=== PATIENT | male | born 1995 | race Caucasian/White ===

== ENCOUNTER → 2016-06-08 | Outpatient (CLI) | payer OTHER ==
--- NOTE | 2016-06-08 18:26 | DIAGNOSTIC IMAGING REPORT ---
MRI THE RIGHT ANKLE NO CONTRAST CLINICAL HISTORY: Right ankle pain. Possible osteochondral lesion involving the talar dome COMPARISON STUDY: No previous studies for comparison. FINDINGS: Imaging was performed in the sagittal, axial, and coronal planes. There are no areas of marrow edema to indicate occult fracture or bone bruise. Specifically, no lesions of the talar dome are visualized. There is lateral soft tissue edema. There is a tear of the anterior talofibular ligament. No tendon tears are visualized. IMPRESSION: 1. Tear of the anterior talofibular ligament 2. No evidence of occult fracture. No evidence of talar dome osteochondritis. 3. Small effusion and lateral soft tissue edema Electronically signed by: Corona Navarrete M.D. 06/08/2016 6:25 PM Dictated Date/Time: 06/08/2016 6:08 PM
== END | disposition home or self-care (01) ==
LOC: C.MRI 17:24
PROVIDERS: ATTEND Family Medicine
DX: S93.401A Sprain of unspecified ligament of right ankle, initial encounter (principal); X58.XXXA Exposure to other specified factors, initial encounter